=== PATIENT | female | born 1945 | race Caucasian/White ===

== ENCOUNTER → 2023-11-19 | Outpatient (CLI) | payer MEDICARE ==
[2023-11-19 14:24] LABS: Basophils # (A) 0.03 X 10*3/uL (0.00-0.10); Basophils % (A) 0.6 %; Eosinophils # (A) 0.03 X 10*3/uL (0.04-0.35); Eosinophils % (A) 0.6 %; HCT 40.3 % (37.2-46.3); HGB 13.2 g/dL (12.0-15.0); Lymphocytes # (A) 1.65 X 10*3/uL (0.90-5.00); Lymphocytes % (A) 33.8 %; MCH 27.4 pg (27.0-32.0); MCHC 32.8 g/dL (32.0-37.0); MCV 83.6 FL (80.0-97.0); Mean Platelet Volume 9.5 FL (9.5-12.2); Monocytes # (A) 0.34 X 10*3/uL (0.20-1.00); NRBC Per 100 WBC 0 X 10*3/uL (0.00-0.01); Neutrophils # (A) 2.82 X 10*3/uL (1.80-7.70); Neutrophils % (A) 57.8 %; Platelet Count 244 X 10*3/uL (140-440); RBC 4.82 X 10*6/uL (4.10-5.20); RDW 14.3 % (11.5-14.5); WBC 4.88 X 10*3/uL (4.50-10.00)
[2023-11-19 14:51] LABS: BUN/Creat Ratio 26.44 Ratio (12.00-20.00); Blood Urea Nitrogen 23.8 mg/dL (9.0-27.0); Calcium 9.7 mg/dL (8.7-10.3); Carbon Dioxide 26.4 mmol/L (21.6-31.8); Chloride 101 mmol/L (96-109); Glucose 110 mg/dL (70-110); Potassium 3.8 mmol/L (3.5-5.5); Sodium 139 mmol/L (135-145)
== END | disposition home or self-care (01) ==
LOC: LABWHC1 09:33
PROVIDERS: ATTEND Orthopaedic Surgery
DX: Z01.818 Encounter for other preprocedural examination (principal); M16.12 Unilateral primary osteoarthritis, left hip
CPT/HCPCS: 36415; 80048; 85025; 93005

== ENCOUNTER → 2023-11-30 | Outpatient (CLI) | payer MEDICARE | END | disposition home or self-care (01) | LOC: LABPAT 09:10 | PROVIDERS: ATTEND Orthopaedic Surgery | DX: Z01.812 Encounter for preprocedural laboratory examination (principal); M16.12 Unilateral primary osteoarthritis, left hip; Z22.322 Carrier or suspected carrier of Methicillin resistant Staphylococcus aureus | CPT/HCPCS: 36415; 86850; 86900; 86901; 87070 ==

== ENCOUNTER 2023-12-08 09:06 | Observation (INO) | payer MEDICARE ==
[2023-12-02 15:23] VITALS: BMI 27.9
--- NOTE | 2023-12-07 09:00 | P.HPOR ---
History of Present Illness H&P Date: 12/07/23 Chief Complaint: Left hip pain The patient is an 78-year-old retired female who presents with left hip pain the past several years worsening over the past 8 months. She notes groin and thigh pain worse with weightbearing activities. She is having night symptoms. She tried medications without much relief. She normally uses a walker. She has a history of a right total hip arthroplasty performed in 2021. Review of Systems As per HPI Past Medical History Past Medical History: Hyperlipidemia, Hypertension, Osteoarthritis (OA) Additional Past Medical History / Comment(s): doesn't tolerate medications for high cholesterol, fx. Lt. wrist 2019 History of Any Multi-Drug Resistant Organisms: None Reported Past Surgical History: Orthopedic Surgery Additional Past Surgical History / Comment(s): Rt. eye surgery to repair hole, Bilat. cataract, Rt. MARGARET 12/24/21 Past Anesthesia/Blood Transfusion Reactions: No Reported Reaction Smoking Status: Never smoker - Past Family History Sister(s) Family Medical History: Cancer, CVA/TIA, Deep Vein Thrombosis (DVT) Mother Family Medical History: Cancer Father Family Medical History: Cancer Medications and Allergies Home Medications Medication Instructions Recorded Confirmed Type Cholecalciferol [Vitamin D3 (25 25 mcg PO DAILY 12/02/23 12/02/23 History Mcg = 1000 Iu)] Oregano Oil/Flaxseed Oil [Oregano 1 each PO DAILY 12/02/23 12/02/23 History Oil 50-25 mg Capsule] Triamterene/Hydrochlorothiazid 1 tab PO QAM 12/02/23 12/02/23 History [Triamterene-Hctz 37.5-25 mg Cp] Allergies Allergy/AdvReac Type Severity Reaction Status Date / Time atorvastatin [From Lipitor] Allergy Unknown Verified 12/02/23 14:46 Penicillins Allergy Dyspnea Verified 12/02/23 14:45 sulfamethoxazole Allergy Diarrhea Verified 12/02/23 14:45 [From Bactrim] trimethoprim [From Bactrim] Allergy Diarrhea Verified 12/02/23 14:45 Physical Examination - Hip left Gait: antalgic Tenderness with palpation: anterior Pain with motion: internal rotation and hip flexion ROM: flexion: 80 degrees ROM: internal rotation: 10 degrees (With pain) ROM: external rotation: 50 degrees Crepitus with motion: Yes Strength: extension: 5/5 Strength: flexion: 5/5 Strength: abduction: 5/5 Tests: impingement tests: positive Results The patient is a well-developed well-nourished female approximately 5 foot 4, 167 pounds of mesomorphic habitus. HEENT exam is nonfocal, neck supple. She has painful passive motion of her left hip. Clinically she has shortening left lower extremity compared to the right. She has an antalgic gait pattern. Her distal neurovascular exam appears intact in the left lower extremity. - Diagnostic results Hip x-ray: image reviewed (2 views of the left hip obtained in the office show severe osteoarthrosis with subchondral sclerosis and [id number] changes.) Assessment and Plan Assessment: Left hip severe osteoarthrosis Plan: I talked to the patient at length regarding her condition along with treatment options. At this point she is quite limited having pain related to her left hip osteoarthrosis despite previous conservative measures. After a thorough discussion she opts to proceed with surgery. We will plan to proceed with left total hip arthroplasty utilizing an anterior approach. Risks and benefits were discussed at length layman's terms. We will institute DVT prophylaxis postoperatively.
[~2023-12-08 09:06] MED LIST: LIDOCAINE 1% (10MG/ML) FOR IV START INTRADERMA PRN; TRANEXAMIC 1,000 MG/100ML-NACL 1,000 MG in SALINE 1 100ML.BAG IVPB PRN
[2023-12-08] MEDS: ACETAMINOPHEN TAB 500 MG TAB PO PRN (10:00)
[2023-12-08] MEDS: MELOXICAM 7.5 MG TAB PO PRN (10:00)
[2023-12-08] MEDS: LACTATED RINGERS 1,000 ML IV SCH (10:10)
[2023-12-08] MEDS: MIDAZOLAM 2 MG/2 ML VIAL IV PRN (10:21)
[2023-12-08] MEDS: DEXAMETHASONE SOD PHOSPHATE 4 MG/ML 1 ML VIAL IV ONE (10:22)
[2023-12-08] MEDS: ONDANSETRON 4 MG/2 ML VIAL IVP ONE (10:22)
[2023-12-08] MEDS ORDERED: ROPIVACAINE 5 MG/ML 30 ML VIAL ONE (10:45)
[2023-12-08] MEDS ORDERED: PROPOFOL 10 MG/ML 20 ML VIAL IV ONE (10:45)
[2023-12-08] MEDS ORDERED: PHENYLEPHRINE 10 MG/ML VIAL ONE (10:45)
[2023-12-08] MEDS ORDERED: TRANEXAMIC 1,000 MG/100ML-NACL PREMIX BAG ONE (10:45)
[2023-12-08] MEDS ORDERED: fentaNYL (PF) 50 MCG/ML 2 ML AMP ONE (10:45)
[2023-12-08] MEDS ORDERED: DEXAMETHASONE SOD PHOSPHATE 4 MG/ML 1 ML VIAL ONE (10:45)
[2023-12-08] MEDS ORDERED: ePHEDrine 50 MG/ML 1 ML VIAL ONE (10:45)
[2023-12-08] MEDS ORDERED: MIDAZOLAM 2 MG/2 ML VIAL ONE (10:45)
[2023-12-08] MEDS: ceFAZolin 1,000 MG in SODIUM CHLORIDE 0.9% 1,000 ML IRRIGATION ONE (11:26)
[2023-12-08] MEDS: LACTATED RINGERS 1,000 ML IV ONE (11:59)
[2023-12-08] MEDS ORDERED: MAGNESIUM HYDROXIDE 2,400 MG/30 ML CUP PO PRN (12:59)
[2023-12-08] MEDS ORDERED: NALOXONE 0.4 MG/ML 1 ML VIAL IV PRN (12:59)
[2023-12-08] MEDS ORDERED: hydrOXYzine pamoate 25 MG CAP PO PRN (12:59)
[2023-12-08] MEDS ORDERED: HYDROmorphone 0.5 MG/0.5 ML SYRINGE IVP PRN (12:59)
--- NOTE | 2023-12-08 13:19 | P.OP ---
Date of Procedure: 12/08/23 Preoperative Diagnosis: Left hip severe osteoarthrosis Postoperative Diagnosis: Same Procedure(s) Performed: Left total hip arthroplastypress-fitanterior approach Implants: [employer] size 2/lateral collared press-fit femoral stem, 36+0 Oxinium femoral head, 54 mm multihole acetabular shell with neutral polyethylene liner. Two 6.5 mm x 30 mm cancellous screws were utilized. Anesthesia: spinal Surgeon: Alex Barcenas Supply Chain Procurement Manager #1: Jian Hanks Estimated Blood Loss (ml): 150 Pathology: none sent Condition: stable Disposition: PACU Indications for Procedure: The patient is an 78-year-old female who presents with progressive left hip pain secondary to osteoarthrosis despite conservative measures. A discussion of the risks and benefits of operative intervention versus continued conservative measures was made with the patient. She opted to proceed with surgery. Operative risks include infection, neurovascular injury, development of blood clots, fracture, possible component loosening, possible leg length discrepancy, possible component failure and need for subsequent procedures was discussed. Informed consent was obtained. Operative Findings: As below Description of Procedure: The patient was brought to the operating room, and after induction of spinal anesthesia was placed supine on the Billie table. Positioning was checked with fluoroscopy. The left hip was then prepped and draped in a normal fashion. A 12 cm incision was then made starting 2 fingerbreadths distal and 3 finger breaths posterior to the ASIS in line with the proximal femur. The skin was incised sharply. Subcutaneous tissues were divided sharply. Electrocautery was used for hemostasis. The fascia was split in line with skin incision. The interval between the sartorius and tensor fascia maury was then bluntly developed. The posterior fascia was opened with electrocautery. The lateral circumflex vessels were identified and cauterized prior to sectioning. A retrac tor was placed along the superior femoral neck as well as the anterior acetabular rim. A wide capsulotomy was performed. The neck cut was then made at a 45 angle to the shaft approximately 1 1/2 cm above the level of the lesser trochanter. The head was extracted. Attention was then paid towards preparing the acetabular. Anterior and posterior retractors were placed. The remaining capsular labral tissue sharply debrided clearly defining the acetabular margins. I began reaming with a 47 mm reamer taking care to initially medialize then reaming at 45 of abduction and 20 of anteversion. Sequential reaming is performed up to 53 mm. A trial 54 mm acetabular shell was inserted in the same orientation and was fully seated. Positioning was checked with fluoroscopy. The final [] mm acetabular shell was inserted again at 45 of abduction and 20 of anteversion. This was fully seated. There was good rim fit and stability. I did place to posterior superior 6.5 mm x 30 mm cancellous screws with good purchase for additional stability. Again fluoroscopy was used to check the adequacy of placement. A neutral polyethylene liner was gently impacted. Care was taken to avoid any soft tissue interposition. Pulsatile lavage was utilized. Attention was then paid towards preparing the proximal femur. The central region was cleared of soft tissue. A canal finder was used to find the femoral canal. Sequential broaching was performed up to size to taking care to lateralize proximally. A calcar mill was used to fashion the medial calcar. There was good rotational stability. A lateral neck along with a 36 mm +0 head was placed. The hip was gently reduced. Fluoroscopy was used to check the adequacy of positioning along with leg lengths. I felt both were good. The hip was gently dislocated. The trial components were removed. The final size 2 collared lateral/collared press-fit femoral stem was inserted parallel to the posterior cortex. This was fully seated and there was good rotational stability. A 36 mm 0 head was placed. This was gently impacted. The hip was then gently reduced. Final fluoroscopic view showed adequate placement implant along with mormonism of leg length. Stability was checked with 80 of external rotation and 60 of extension of the right hip. The wound was irrigated with sterile lavage. The fascia was closed with running 0 Vicryl suture. There was minimal drainage therefore a deep drain was not placed. The second dose of IV TXA was given. The subcutaneous tissues were reapproximated interrupted 2-0 Vicryl sutures. The skin was reapproximated with 3-0 subcuticular strata fix suture. Skin tape and adhesive was applied. A sterile dressing was applied. The patient was then awoken from sedation and transferred to recovery room in good condition. Blood loss was estimated at 150 mL. No complications were incurred. Sponge and needle counts were correct at the end of the case. Jian WRIGHT assisted during the major components is case to include exposure, bone resection, implantation, and closure.
--- NOTE | 2023-12-08 13:45 | XR ---
EXAMINATION TYPE: XR Hip Limited LT DATE OF EXAM: 12/08/2023 1:30 PM CLINICAL INDICATION:Female, 78 years old with history of Status post hip surgery, assess surgical ali gnment; [facility] COMPARISON: 12/08/2023 TECHNIQUE: XR Hip Limited LT; hip was examined in the frontal and lateral projections and a AP pelvis . FINDINGS: Post arthroplasty changes, hardware is intact, alignment is appropriate. No evidence of fra cture. Postoperative changes of the soft tissues with subcutaneous gas. No evidence of any acute osse ous pathology or joint dislocation. IMPRESSION: Hip arthroplasty with hardware intact and in appropriate alignment. No acute fracture.
[2023-12-08] MEDS: HYDROmorphone 0.5 MG/0.5 ML SYRINGE IVP PRN (15:06)
--- NOTE | 2023-12-08 17:55 | FL ---
EXAMINATION TYPE: FL guidance operating room, XR Hip Limited LT Intraoperative/procedural fluoroscopi c services were provided. Total fluoroscopy time is 34 seconds with a total of 2 submitted images to PACS. Please see the operative/procedural note for further details. DAP: 1.7587 Gycm2
[2023-12-08] MEDS: HYDROcodone/APAP 7.5-325MG 1 EACH TAB PO PRN (18:00)
[2023-12-08] MEDS: TRIAMTERENE-HCTZ 37.5-25MG 1 EACH CAP PO SCH (18:00)
[2023-12-08] MEDS: SENNOSIDES-DOCUSATE SODIUM 1 EACH TAB PO SCH (20:11)
[2023-12-09 08:38] LABS: Basophils # (A) 0.01 X 10*3/uL (0.00-0.10); Basophils % (A) 0.1 %; Eosinophils # (A) 0 X 10*3/uL (0.04-0.35); Eosinophils % (A) 0 %; HCT 28.9 % (37.2-46.3); HGB 9.6 g/dL (12.0-15.0); Lymphocytes # (A) 0.94 X 10*3/uL (0.90-5.00); Lymphocytes % (A) 13.4 %; MCH 28.2 pg (27.0-32.0); MCHC 33.2 g/dL (32.0-37.0); Mean Platelet Volume 9.6 FL (9.5-12.2); Monocytes # (A) 0.47 X 10*3/uL (0.20-1.00); Monocytes % (A) 6.7 %; NRBC Per 100 WBC 0 X 10*3/uL (0.00-0.01); Neutrophils # (A) 5.55 X 10*3/uL (1.80-7.70); Neutrophils % (A) 79.5 %; Platelet Count 188 X 10*3/uL (140-440); RDW 14.1 % (11.5-14.5); WBC 6.99 X 10*3/uL (4.50-10.00)
[2023-12-09] MEDS: RIVAROXABAN 10 MG TAB PO SCH (08:40)
--- NOTE | 2023-12-09 11:37 | P.DS ---
Providers Date of admission: 12/08/2023 Expected date of discharge: 12/09/23 Attending physician: Alex Barcenas Consults: 12/08/23 12:59 Consult Physician Routine Consulting Provider: Cassidy Augustin Consult Reason/Comments: medical management s/p direct anterior left total hip arthroplasty Do you want consulting provider notified?: Yes [facility] Course: Date of admission: 12/08/2023 Date of discharge: 12/09/2023 Admission diagnosis: Left hip osteoarthritis Discharge diagnosis: same Attending physician: Dr. Barcenas Surgical procedures: Direct anterior left total hip arthroplasty Brief history: Patient is a 78-year-old female with a history of progressive primary left hip osteoarthritis. At this point patient has failed conservative treatment measures and has opted to proceed with a elective direct anterior left total hip arthroplasty. Hospital course: Details of patient's surgery can be found in operative report. Patient tolerated the procedure well and was subsequently transported to orthopedic floor. Patient's orthopeidc and medical care was provided daily. Patient had daily laboratory tests performed for evaluation of overall blood counts. Patient had daily physical therapy to include strengthening range of motion as well as education with walker ambulation. Patient was treated with Xarelto for their postoperative DVT prophylaxis during their inpatient stay. Patient was noted to have a relatively uneventful postoperative course. Patient reported satisfactory pain control with oral pain medications by postoperative day 1. Patient showed satisfactory progress with physical therapy. Patient moved steadily through the program and had no difficulty meeting the goals by postoperative day 1. Given patient's otherwise satisfactory course and having met physical therapy goals, plan is to discharge patient home with health services on postoperative day 1. Discharge condition/disposition: Patient will be discharged home with health services in stable condition. Discharge medications: Instructions are given on resumption of patient's normal daily medications per primary care recommendation, in addition patient will be prescribed Somis; senna; Eliquis 2.5 milligrams twice a day 2 weeks. Discharge instructions: 1. Wound care and infection precautions, keep incision dry and covered while showering, no lotions, creams, moisturizers. No soaking, tubs, pools, hottubs. Do not scrub over the incision. 2. Weight-bear as tolerated with walker / cane until follow-up. 3. Ice and elevate when necessary. Do not exceed 20 minutes per hour with ice pack. 4. Utilize compression sleeve until seen at first follow up appointment. 5. Visiting nursing care. 6. Home physical therapy. 7. Pain meds and anticoagulants per prescription. 8. Pain medication has potential to cause constipation. Increase oral fluid and fiber intake. Contact primary care provider if you have not had a bowel movement within 48 hours after discharge 9. No anti-inflammatory medication until discussed at first post operative visit, this including Motrin, Aleve, Mobic, Diclofenac. 10. Follow up in office at 2 weeks postop with Indio Garay PA-C / Jian Hanks PA-C 11. Follow up with your primary care doctor 7-10 days after discharge. 12. Contact [facility] with any questions, . Keep incision clean, dry, intact. While showering, cover fusion tape was Saran wrap. Keep fusion tape on until follow-up appointment in office in 2 weeks Assessment: Left hip osteoarthritis Procedures: Direct anterior left total hip arthroplasty Patient Condition at Discharge: Good Plan - Discharge Summary Discharge Rx Participant: Yes New Discharge Prescriptions: No Action Cholecalciferol [Vitamin D3 (25 Mcg = 1000 Iu)] 25 mcg PO DAILY Triamterene/Hydrochlorothiazid [Triamterene-Hctz 37.5-25 mg Cp] 1 tab PO QAM Oregano Oil/Flaxseed Oil [Oregano Oil 50-25 mg Capsule] 1 each PO DAILY Discharge Medication List Cholecalciferol [Vitamin D3 (25 Mcg = 1000 Iu)] 25 mcg PO DAILY 12/02/23 [History] Oregano Oil/Flaxseed Oil [Oregano Oil 50-25 mg Capsule] 1 each PO DAILY 12/02/23 [History] Triamterene/Hydrochlorothiazid [Triamterene-Hctz 37.5-25 mg Cp] 1 tab PO QAM 12/02/23 [History] Follow up Appointment(s)/Referral(s): Jian Hanks PAC [PHYSICIAN [employer]] - 2 Weeks [facility] [NON-STAFF] - 1 Week ([facility] will call you to arrange a visit) Patient Instructions/Handouts: Anterior Hip Replacement (DC), Anterior Hip Replacement (GEN) Activity/Diet/Wound Care/Special Instructions: Orthopedic Discharge Instructions: 1. Wound care and infection precautions, keep incision dry and covered while showering, no lotions, creams, moisturizers. No soaking, pools, hot tubs. Do not scrub over incision. 2. Weight-bear as tolerated with walker / cane until follow-up. 3. Ice and elevate when necessary. Do not exceed 20 minutes per hour with ice pack. 4. Utilize compression sleeve until seen at first follow up appointment. 5. Pain meds and anticoagulants per prescription. 6. Pain medication has potential to cause constipation. Increase oral fluid and fiber intake. Contact primary care provider if you have not had a bowel movement within 48 hours after discharge. 7. No anti-inflammatory medication until discussed at first post operative visit, this including Motrin, Aleve, Mobic, Diclofenac. 8. Follow up in office at 2 weeks postop with Indio Garay PA-C / Jian Hanks PA-C 9. Follow up with your primary care doctor 7-10 days after discharge. 10. Contact [facility] with any questions, . Keep incision clean, dry, intact. While showering, cover fusion tape with Saran wrap. Keep fusion tape on until follow-up appointment office in 2 weeks.
--- NOTE | 2023-12-09 11:40 | P.PN ---
Subjective Progress Note Date: 12/09/23 Principal diagnosis: Left hip osteoarthritis Patient was seen at bedside this morning sitting up in chair in just finished working with physical therapy/occupational therapy. Patient says she is looking forward to going home later today. Patient says she will be standing with her daughter for the first few days. Patient says she has urinated several times since surgery yesterday without issue. Patient says she has not had bowel movement yet, however, patient has been passing gas. Patient says the pain is controlled with [place]. Patient denies any other issues at this time. Patient denies chest pain, fever, shortness breath, nausea, vomiting, change in vision, loss of bowel/bladder control. Objective - Vital Signs Vital signs: Vital Signs Temp 97.4 F L 12/09/23 07:37 Pulse 59 L 12/09/23 07:37 Resp 17 12/09/23 07:37 BP 104/63 12/09/23 07:37 Pulse Ox 99 12/09/23 07:37 FiO2 Intake & Output 12/08/23 12/09/23 12/09/23 18:59 06:59 18:59 Intake Total 1501 Output Total 150 Balance 1351 Weight 72.8 kg Intake: IV 1501 Output: Estimated Blood Loss 150 Other: # Voids 0 2 - Exam left hip: Incision is clean, dry, and intact. The exofin fusion tape is in good condition. There is minimal soft tissue swelling and ecchymosis surrounding the medial and lateral aspects of the incision. Calf is soft, no tenderness with palpation. Plantar flexion, dorsiflexion, EHL, FHL are intact. Sensory exam to light touch throughout the extremity is intact, dorsal pedis pulses 2+. - Labs CBC & Chem 7: 12/09/23 04:44 Labs: Abnormal Lab Results - Last 24 Hours (Table) 12/09/23 Range/Units 04:44 RBC 3.40 L (4.10-5.20) X 10*6/uL Hgb 9.6 L (12.0-15.0) g/dL Hct 28.9 L (37.2-46.3) % Eosinophils # 0 L (0.04-0.35) X 10*3/uL Assessment and Plan Assessment: 1. Left hip osteoarthritis - Postop day 1 status post left total hip arthroplasty Plan: 1. Left hip osteoarthritis - direct anterior left total hip arthroplasty performed yesterday, 12/07/2023. Patient still bedside this morning with dressing present over left anterior hip. Patient did do well with therapy. Patient does have a walker for home. Discharge home today with health services. 2. Appreciate medical management 3. Pain management - [place] 4. DVT prophylaxis - [facility]. Going home with Eliquis 2.5 mg twice a day 2 weeks 5. GI prophylaxis - senna 6. PT/OT - weightbearing as tolerated with walker 7. Encourage incentive spirometer use 8. Discharge planning - home today with health services Time with Patient: Less than 30
--- NOTE | 2023-12-09 12:35 | P.ANPRN ---
Procedure Note - Anesthesia - Nerve Block Performed Left Kash Single Time Out Performed: Yes Date of Procedure: 12/08/23 Procedure Start Time: Procedure Stop Time: Location of Patient: PreOp Indication: Acute Post-Operative Pain, Requested by Surgeon Sedation Type: Sedate with meaningful contact maintained Preparation: Sterile Prep Position: Supine Needle Types: Pajunk Needle Gauge: 21 Ultrasound used to visualize needle placement: Yes Ultrasound used to observe medication spread: Yes Blood Aspirated: No Pain Paresthesia on Injection Noted: No Resistance on Injection: Normal Image Stored and Saved: Yes Events: Uneventful and Well Tolerated (Ropivacaine 0.5% 20 cc plus dexamethasone 4 mg)
[2023-12-09] MEDS: HYDROcodone/APAP 5-325MG 1 EACH TAB PO PRN (14:03)
[2023-12-09] MEDS: SODIUM CHLORIDE 0.9% 1,000 ML IV SCH (14:03)
[2023-12-09] MEDS: SODIUM CHLORIDE 0.9% 500 ML 500 ML IV ONE (14:04)
[2023-12-09] MEDS: HYDROmorphone 0.5 MG/0.5 ML SYRINGE IVP PRN (22:51)
--- NOTE | 2023-12-09 23:35 | P.CONS ---
History of Present Illness - Reason for Consult Consult date: 12/09/23 Medical management - Chief Complaint Left hip arthroplasty - History of Present Illness Patient is a 78-year-old female with past medical history of hypertension, hyperlipidemia, osteoarthritis and a prior history of right total hip arthroplasty was admitted to the hospital for elective left hip arthroplasty. Patient is s/p left hip total arthroplasty press-fit anterior approach. Currently patient is sitting in the chair. Awake alert and oriented. No complaints of chest pain. Patient felt dizzy and lightheaded this morning. No complaints of nausea or vomiting. Denies any fever or chills. Denies any dysuria or hematuria. Blood pressure went down to 79/39 with pulse 63 respiration 11 and pulse ox 94% on room air. Other laboratory data showed WBC 6.9 hemoglob 9.6 and platelets 188 Review of Systems Constitutional: Patient denies any fever or chills . No generalized weakness or weight loss. Abdomen: Patient denied nausea vomiting and diarrhea and abdominal pain. Cardiovascular: Patient denies any chest pain or short of breath no palpitations. Respiratory: patient denied any cough is from production. No shortness of breath Neurologic: Patient denied any numbness or tingling or headache. Dizziness and lightheaded Musculoskeletal: Patient denies any complaints of joint swelling or deformity. Skin: Negative Psychiatric: Negative Endocrine: No heat or cold intolerance. No recent weight gain. Genitourinary: No dysuria or hematuria. All other 14 point ROS negative except the above Past Medical History Past Medical History: Hyperlipidemia, Hypertension, Osteoarthritis (OA) Additional Past Medical History / Comment(s): doesn't tolerate medications for high cholesterol, fx. Lt. wrist 2019 History of Any Multi-Drug Resistant Organisms: None Reported Past Surgical History: Orthopedic Surgery Additional Past Surgical History / Comment(s): Rt. eye surgery to repair hole, Bilat. cataract, Rt. MARGARET 12/24/21 Past Anesthesia/Blood Transfusion Reactions: No Reported Reaction Past Psychological History: No Psychological Hx Reported Smoking Status: Never smoker Past Alcohol Use History: Daily Additional Past Alcohol Use History / Comment(s): 1 beer/day or every other day Past Drug Use History: None Reported - Past Family History Sister(s) Family Medical History: Cancer, CVA/TIA, Deep Vein Thrombosis (DVT) Mother Family Medical History: Cancer Father Family Medical History: Cancer Medications and Allergies Home Medications Medication Instructions Recorded Confirmed Type Cholecalciferol [Vitamin D3 (25 25 mcg PO DAILY 12/02/23 12/02/23 History Mcg = 1000 Iu)] Oregano Oil/Flaxseed Oil [Oregano 1 each PO DAILY 12/02/23 12/02/23 History Oil 50-25 mg Capsule] Triamterene/Hydrochlorothiazid 1 tab PO QAM 12/02/23 12/02/23 History [Triamterene-Hctz 37.5-25 mg Cp] Apixaban [Eliquis] 2.5 mg PO BID #60 tab 12/09/23 Rx HYDROcodone/APAP 7.5-325MG [[place] 1 tab PO Q6HR PRN #28 tab 12/09/23 Rx 7.5-325] Sennosides/Docusate Sodium [Senna 1 each PO DAILY #20 capsule 12/09/23 Rx Plus 8.6-50 mg Softgel] Allergies Allergy/AdvReac Type Severity Reaction Status Date / Time atorvastatin [From Lipitor] Allergy Unknown Verified 12/02/23 14:46 Penicillins Allergy Dyspnea Verified 12/02/23 14:45 sulfamethoxazole Allergy Diarrhea Verified 12/02/23 14:45 [From Bactrim] trimethoprim [From Bactrim] Allergy Diarrhea Verified 12/02/23 14:45 Physical Exam Vitals: Vital Signs Temp Pulse Pulse Resp BP BP BP 12/09/23 07:37 97.4 F L 59 L 17 104/63 12/09/23 03:33 62 104/62 12/09/23 02:00 97.6 F 63 11 L 79/39 12/08/23 20:00 97.7 F 67 13 119/73 12/08/23 17:30 97.8 F 85 17 137/82 12/08/23 16:55 97.1 F L 70 16 151/84 12/08/23 16:15 63 16 143/65 12/08/23 16:00 57 L 16 150/71 12/08/23 15:45 60 16 12/08/23 15:30 71 16 136/61 12/08/23 15:15 75 18 139/73 12/08/23 14:45 60 18 132/58 12/08/23 14:15 48 L 18 127/59 12/08/23 14:00 51 L 18 121/59 12/08/23 13:45 54 L 18 115/56 12/08/23 13:30 57 L 18 100/55 12/08/23 13:15 97.1 F L 78 12 89/51 12/08/23 10:30 61 16 137/72 Pulse Ox 12/09/23 07:37 99 12/09/23 03:33 12/09/23 02:00 94 L 12/08/23 20:00 97 12/08/23 17:30 98 12/08/23 16:55 99 12/08/23 16:15 92 L 12/08/23 16:00 99 12/08/23 15:45 94 L 12/08/23 15:30 98 12/08/23 15:15 94 L 12/08/23 14:45 99 12/08/23 14:15 96 12/08/23 14:00 99 12/08/23 13:45 95 12/08/23 13:30 100 12/08/23 13:15 100 12/08/23 10:30 96 Intake and Output 12/08/23 12/09/23 12/09/23 22:59 06:59 14:59 Intake Total 200 Balance 200 Intake: IV 200 Other: # Voids 0 2 Weight 72.8 kg PHYSICAL EXAMINATION: Patient is lying in the bed comfortably, no acute distress, awake alert and oriented.. HEENT: Normocephalic. Neck is supple. Pupils reactive. Nostrils clear. Oral ca vity is moist. Neck reveals no JVD, carotid bruits, or thyromegaly. CHEST EXAMINATION: Trachea is central. Symmetrical expansion. Lung leblanc clear to auscultation and percussion. CARDIAC: Normal S1, S2 with no gallops. No murmurs ABDOMEN: Soft. Bowel sounds normal. No organomegaly. No abdominal bruits. Extremities: reveal no edema. No clubbing or cyanosis Neurologically awake, alert, oriented x3 with well-coordinated movements. No focal deficits noted Skin: No rash or skin lesions. Psychiatric: Coperative. Nonsuicidal Musculoskeletal: No joint swelling or deformity. Normal range of motion. Results CBC & Chem 7: 12/09/23 04:44 Labs: Abnormal Lab Results - Last 24 Hours (Table) 12/09/23 Range/Units 04:44 RBC 3.40 L (4.10-5.20) X 10*6/uL Hgb 9.6 L (12.0-15.0) g/dL Hct 28.9 L (37.2-46.3) % Eosinophils # 0 L (0.04-0.35) X 10*3/uL Assessment and Plan Assessment: Status post left total hip arthroplasty postoperative day 1 Dizziness and lightheadedness likely due to hypotension Hypertension currently blood pressure is not elevated. Hyperlipidemia Osteoarthritis History of right total hip arthroplasty Daily alcohol use with 1 beer per day or every other day. DVT and GI prophylaxis Plan: Patient will be given 500cc fluid bolus and continue with IV hydration with normal saline at 75 cc/h. Continue to monitor blood pressure closely. Limit narcotic pain medication use. Blood pressure medications on hold today. Continue with incentive spirometry and ambulation, PT OT. Will continue to follow and further recommendations based on the clinical course. Monitor H&H. Thank you kindly for your consult.
[2023-12-10 08:16] VITALS: BP 120/60; PULSE 85; TEMP 98.1
[2023-12-10 10:12] VITALS: RESP 16
[2023-12-10 11:06] LABS: BUN/Creat Ratio 20.38 Ratio (12.00-20.00); Blood Urea Nitrogen 16.3 mg/dL (9.0-27.0); Calcium 8.2 mg/dL (8.7-10.3); Carbon Dioxide 23.8 mmol/L (21.6-31.8); Chloride 100 mmol/L (96-109); Glucose 118 mg/dL (70-110); Potassium 3.6 mmol/L (3.5-5.5); Sodium 132 mmol/L (135-145)
--- NOTE | 2023-12-10 11:07 | P.PN ---
Subjective Progress Note Date: 12/10/23 Principal diagnosis: Status post direct anterior left total hip arthroplasty Patient was evaluated today at bedside, she is resting in her hospital bed, her daughter is present. Patient was supposed to be discharged home yesterday, she was having a little bit trouble with pain control and her ambulation later in the day. She we did keep her in the hospital for further evaluation. Patient was examined today and visualized ambulating well with the physical therapy. She states that the pain is better today than yesterday. She denies headaches, lightheadedness, chest pain or shortness of breath Objective - Vital Signs Vital signs: Vital Signs Temp 98.1 F 12/10/23 07:25 Pulse 85 12/10/23 09:16 Resp 16 12/10/23 09:16 BP 120/60 12/10/23 07:25 Pulse Ox 96 12/10/23 07:25 FiO2 Intake & Output 12/09/23 12/10/23 12/10/23 18:59 06:59 18:59 Other: # Voids 1 1 - Exam Left lower extremity: Incision is clean, dry, and intact. The exofin fusion tape is in good condition. There is minimal soft tissue swelling and ecchymosis surrounding the medial and lateral aspects of the incision. Calf is soft, no tenderness with palpation. Plantar flexion, dorsiflexion, EHL, FHL are intact. Sensory exam to light touch throughout the extremity is intact, dorsal pedis pulses 2+. - Labs CBC & Chem 7: 12/09/23 04:44 Assessment and Plan Assessment: Postoperative day #2 status post direct anterior left total hip arthroplasty Plan: Pain control, plan for discharge home on [place] DVT prophylaxis, Eliquis 2.5 mg twice a day for 30 days Wound care instructions were discussed, this to include showering Home health care after discharge, this to include nursing and therapy Weight-bear as tolerated, utilize walker Medical recommendations appreciated Discharge planning: Patient stable for discharge home today Time with Patient: Less than 30
--- NOTE | 2023-12-10 21:14 | P.PN ---
Progress Note - Text Progress Note Date: 12/10/23 - Chief Complaint Left hip arthroplasty - History of Present Illness Patient is a 78-year-old female with past medical history of hypertension, hyperlipidemia, osteoarthritis and a prior history of right total hip arthroplasty was admitted to the hospital for elective left hip arthroplasty. Patient is s/p left hip total arthroplasty press-fit anterior approach. Currently patient is sitting in the chair. Awake alert and oriented. No compl aints of chest pain. Patient felt dizzy and lightheaded this morning. No complaints of nausea or vomiting. Denies any fever or chills. Denies any dysuria or hematuria. Blood pressure went down to 79/39 with pulse 63 respiration 11 and pulse ox 94% on room air. Other laboratory data showed WBC 6.9 hemoglob 9.6 and platelets 188 December 10, 2023: Patient sitting up in the chair. Daughter at the bedside. Did feel a bit dizzy this morning. Hemoglobin has dropped since presurgery. Patient to hold off diuretics until systolic blood pressure above 130 at home. Also discussed to buy a blood pressure machine. Questions answered Current medications reviewed Past Medical History Past Medical History: Hyperlipidemia, Hypertension, Osteoarthritis (OA) Additional Past Medical History / Comment(s): doesn't tolerate medications for high cholesterol, fx. Lt. wrist 2019 History of Any Multi-Drug Resistant Organisms: None Reported Past Surgical History: Orthopedic Surgery Additional Past Surgical History / Comment(s): Rt. eye surgery to repair hole, Bilat. cataract, Rt. MARGARET 12/24/21 Past Anesthesia/Blood Transfusion Reactions: No Reported Reaction Past Psychological History: No Psychological Hx Reported Smoking Status: Never smoker Past Alcohol Use History: Daily Additional Past Alcohol Use History / Comment(s): 1 beer/day or every other day Past Drug Use History: None Reported - Past Family History Sister(s) Family Medical History: Cancer, CVA/TIA, Deep Vein Thrombosis (DVT) Mother Family Medical History: Cancer Father Family Medical History: Cancer On examination: VITAL SIGNS: [98.1, 85, 16, 120/60, 96% room air] GENERAL APPEARANCE: Sitting up in a chair, comfortable HEENT: Normal external appearance of nose and ear. Oral cavity normal EYES: Pupils equal. Conjunctiva normal. NECK: JVD not raised. Mass not palpable. RESPIRATORY: Respiratory effort normal. Lungs clear to auscultation. CARDIOVASCULAR: First and second sounds normal. No edema. ABDOMEN: Soft. Liver and spleen not palpable. No tenderness. No mass palpable. PSYCHIATRY: Alert and oriented x3. Mood and affect normal. MUSCULOSKELETAL: Evidence of OA. Dressing over surgical site INVESTIGATIONS, reviewed in the clinical context: December 08 and : Potassium 3.6 creatinine 0.8 white count 6.9 hemoglobin 9.6 Previous labs: Hemoglobin 13.1 November 19, 2023 Assessment: Status post left total hip arthroplasty postoperative day 1 Acute postprocedure blood loss anemia as expected from surgery. I had not supplement Hypertension. Hold off diuretics until systolic blood pressure above 130 Hyperlipidemia Primary osteoarthritis History of right total hip arthroplasty Discussed with patient daughter. Thank you
== END 2023-12-10 12:24 | disposition home health service (06) ==
LOC: OR 09:06 → 4SSUR 13:13 → OR 12-10 10:11 → 4SSUR 12-10 10:11
PROVIDERS: ADMIT Orthopaedic Surgery; ATTEND Orthopaedic Surgery
DX: M16.12 Unilateral primary osteoarthritis, left hip (principal); D62 Acute posthemorrhagic anemia; I10 Essential (primary) hypertension; E78.5 Hyperlipidemia, unspecified; Z79.899 Other long term (current) drug therapy; Z88.1 Allergy status to other antibiotic agents; Z88.0 Allergy status to penicillin; Z88.2 Allergy status to sulfonamides; Z88.8 Allergy status to other drugs, medicaments and biological substances; Z96.641 Presence of right artificial hip joint; Z98.42 Cataract extraction status, left eye; Z98.41 Cataract extraction status, right eye
CPT/HCPCS: 97162; 97530; 97535; 97166; 64447; 80048; 85025; 73501; 27130; G0378; C1776; J2250; J1100; J0690 ×3; J2405; J3010; J2795; J2704; J1170 ×2; J2371

== ENCOUNTER → 2024-01-13 | Outpatient (CLI) | payer MEDICARE ==
[2024-01-13 15:54] LABS: % Iron Saturation 17.78 (12.00-45.00); ALT 12 U/L (8-44); AST 16 U/L (13-35); Albumin 4.5 g/dL (3.8-4.9); Albumin/Globulin Ratio 1.73 Ratio (1.60-3.17); Alkaline Phosphatase 74 U/L (41-126); Blood Urea Nitrogen 18.4 mg/dL (9.0-27.0); Calcium 9.6 mg/dL (8.7-10.3); Carbon Dioxide 25.3 mmol/L (21.6-31.8); Chloride 99 mmol/L (96-109); Globulin 2.6 g/dL (1.6-3.3); Glucose 107 mg/dL (70-110); Iron 56 UG/DL (50-170); Potassium 3.9 mmol/L (3.5-5.5); Sodium 137 mmol/L (135-145); Total Bilirubin 0.5 mg/dL (0.3-1.2); Total Iron Binding Capacity 315 UG/DL (228-460); Total Protein 7.1 g/dL (6.2-8.2)
[2024-01-13 16:16] LABS: Basophils # (A) 0.05 X 10*3/uL (0.00-0.10); Basophils % (A) 0.7 %; Eosinophils # (A) 0.11 X 10*3/uL (0.04-0.35); Eosinophils % (A) 1.6 %; HCT 35.7 % (37.2-46.3); HGB 11.4 g/dL (12.0-15.0); Lymphocytes # (A) 2.24 X 10*3/uL (0.90-5.00); Lymphocytes % (A) 33.1 %; MCH 27.6 pg (27.0-32.0); MCHC 31.9 g/dL (32.0-37.0); MCV 86.4 FL (80.0-97.0); Mean Platelet Volume 9.6 FL (9.5-12.2); Monocytes # (A) 0.47 X 10*3/uL (0.20-1.00); Monocytes % (A) 6.9 %; NRBC Per 100 WBC 0 X 10*3/uL (0.00-0.01); Neutrophils # (A) 3.89 X 10*3/uL (1.80-7.70); Neutrophils % (A) 57.6 %; Platelet Count 306 X 10*3/uL (140-440); RBC 4.13 X 10*6/uL (4.10-5.20); RDW 14.5 % (11.5-14.5); WBC 6.77 X 10*3/uL (4.50-10.00)
== END | disposition home or self-care (01) ==
LOC: LABWHC1 11:47
PROVIDERS: ATTEND Family Medicine
DX: I10 Essential (primary) hypertension (principal); Z96.642 Presence of left artificial hip joint
CPT/HCPCS: 36415; 80053; 82728; 83540; 83550; 85025